=== PATIENT | male | born 1990 | race Caucasian/White ===

== ENCOUNTER 2023-11-03 11:42 | Emergency (ER) | payer BC ==
[~2023-11-03] VITALS: Ht 175.3 cm; Wt 78.5 kg
[2023-11-03 11:52] VITALS: BP 135/85; PULSE 88; RESP 18; TEMP 99; O2SAT 97
[2023-11-03] MEDS ORDERED: CLIN-97 PO (12:34)
[2023-11-03] MEDS ORDERED: HYDR-3965 PO (12:34)
== END 2023-11-03 12:58 | disposition home or self-care (01) ==
LOC: ER 11:43
DX: K02.9 Dental caries, unspecified (principal); R42 Dizziness and giddiness; K08.89 Other specified disorders of teeth and supporting structures
CPT/HCPCS: 99283